=== PATIENT | female | born 1975 | race African-American/Black ===

== ENCOUNTER 2017-03-25 12:24 | Emergency (ER) | payer OTHER ==
[~2017-03-25] VITALS: Ht 167.6 cm; Wt 105.0 kg
[2017-03-25 12:26] VITALS: BP 141/86; PULSE 74; RESP 16; TEMP 98.2; O2SAT 96
--- NOTE | 2017-03-25 12:37 | PD ---
HPI Chief Complaint: Dizziness Time Seen by Provider: 12:37 Travel History International Travel<30 days: No Contact w/Intl Traveler<30days: No Traveled to known affect area: No History of Present Illness HPI 41-year-old Lyn female presents the emergency department with 2 day history of frequent diarrhea. Patient states she has a lot of fruit which started the problem. Patient states he feels lightheaded and dizzy, as well as nauseous. Patient denies vomiting or urinary symptoms. She has no fever, chills, or other symptoms. She denies any significant abdominal pain. She denies vaginal symptoms. She has no known drug allergies. PFSH Past Medical History Diminished Hearing: No ?: Not : 3 Para: 2 Miscarriage: 1 Past Surgical History Abdominal Surgery: Yes (HERNIA REPAIR) Section: Yes Social History Alcohol Use: Yes (STOPPED DAILY ALCOHOL 01/05) Tobacco Use: No Substance Use: No Allergies-Medications (Allergen,Severity, Reaction): Coded Allergies: No Known Allergies (Verified , 03/25/17) Reported Meds & Prescriptions Reported Meds & Active Scripts Active Zofran (Ondansetron HCl) 4 Mg Tab 4 Mg PO Q6HR PRN Cephalexin 500 Mg Cap 500 Mg PO Q8H Review of Systems Except as stated in HPI: all other systems reviewed are Neg General / Constitutional: No: Fever, Chills Eyes: No: Visual changes HENT: Positive: Lightheadedness, No: Headaches, Sore Throat, Rhinitis, Rhinorrhea, Congestion, Nosebleed, Neck Stiffness, Neck Pain, Ear Discharge, Earache Cardiovascular: No: Chest Pain or Discomfort Respiratory: No: Shortness of Breath Gastrointestinal: Positive: Nausea, Diarrhea, Loss of Appetite, No: Vomiting, Abdominal Pain Genitourinary: No: Urgency, Frequency, Dysuria, Pelvic Pain, Flank Pain, Discharge, Vaginal Bleeding Musculoskeletal: No: Pain Skin: No Rash Neurologic: No: Weakness Psychiatric: No: Depression Endocrine: No: Polydipsia Hematologic/Lymphatic: No: Easy Bruising Physical Exam Narrative GENERAL: Patient appears in mild distress. SKIN: Warm and dry. Color. Normal turgor. No rash. HEAD: Atraumatic. Normocephalic. EYES: Pupils equal and round. No scleral icterus. No injection or drainage. ENT: No nasal bleeding or discharge. Mucous membranes pink and moist. TMs clear bilaterally. Pharynx is normal. Airway is patent. NECK: Trachea midline. Supple and nontender. CARDIOVASCULAR: Regular rate and rhythm. RESPIRATORY: No accessory muscle use. Clear to auscultation. Breath sounds equal bilaterally. GASTROINTESTINAL: Abdomen soft, mild diffuse tenderness, nondistended. Hepatic and splenic margins not palpable. No CVA tenderness. MUSCULOSKELETAL: Extremities without clubbing, cyanosis, or edema. No obvious deformities. NEUROLOGICAL: Awake and alert. No obvious cranial nerve deficits. Motor grossly within normal limits. Five out of 5 muscle strength in the arms and legs. Normal speech. PSYCHIATRIC: Appropriate mood and affect; insight and judgment normal. Data Data Last Documented VS Vital Signs Date Time Temp Pulse Resp B/P Pulse Ox O2 Delivery O2 Flow Rate FiO2 03/25/17 13:21 63 15 153/95 03/25/17 12:26 98.2 96 Orders Complete Blood Count With Diff (03/25/17 12:46) Comprehensive Metabolic Panel (03/25/17 12:46) Lipase (03/25/17 12:46) Lactic Acid (03/25/17 12:46) Urinalysis - C+S If Indicated (03/25/17 12:46) Iv Access Insert/Monitor (03/25/17 12:46) Ecg Monitoring (03/25/17 12:46) Oximetry (03/25/17 12:46) Ondansetron Inj (Zofran Inj) (03/25/17 13:00) Sodium Chlor 0.9% 1000 Ml Inj (Ns 1000 M (03/25/17 12:46) Sodium Chloride 0.9% Flush (Ns Flush) (03/25/17 13:00) Ed Urine Pregnancytest Poc (03/25/17 12:46) Orthostatic Vital Signs (03/25/17 13:00) Urine Culture (03/25/17 13:05) Ceftriaxone Inj (Rocephin Inj) (03/25/17 14:00) Labs Laboratory Tests Test 03/25/17 03/25/17 03/25/17 13:02 13:03 13:05 White Blood Count 4.0 TH/MM3 Red Blood Count 4.73 MIL/MM3 Hemoglobin 13.1 GM/DL Hematocrit 40.2 % Mean Corpuscular Volume 85.1 FL Mean Corpuscular Hemoglobin 27.8 PG Mean Corpuscular Hemoglobin 32.7 % Concent Red Cell Distribution Width 14.4 % Platelet Count 248 TH/MM3 Mean Platelet Volume 8.7 FL Neutrophils (%) (Auto) 53.6 % Lymphocytes (%) (Auto) 30.3 % Monocytes (%) (Auto) 12.6 % Eosinophils (%) (Auto) 3.2 % Basophils (%) (Auto) 0.3 % Neutrophils # (Auto) 2.1 TH/MM3 Lymphocytes # (Auto) 1.2 TH/MM3 Monocytes # (Auto) 0.5 TH/MM3 Eosinophils # (Auto) 0.1 TH/MM3 Basophils # (Auto) 0.0 TH/MM3 CBC Comment DIFF FINAL Differential Comment Sodium Level 140 MEQ/L Potassium Level 4.2 MEQ/L Chloride Level 107 MEQ/L Carbon Dioxide Level 29.5 MEQ/L Anion Gap 4 MEQ/L Blood Urea Nitrogen 8 MG/DL Creatinine 0.84 MG/DL Estimat Glomerular Filtration 91 ML/MIN Rate Random Glucose 104 MG/DL Calcium Level 8.4 MG/DL Total Bilirubin 0.2 MG/DL Aspartate Amino Transf 27 U/L (AST/SGOT) Alanine Aminotransferase 35 U/L (ALT/SGPT) Alkaline Phosphatase 62 U/L Total Protein 7.3 GM/DL Albumin 3.1 GM/DL Lipase 127 U/L Lactic Acid Level 1.5 mmol/L Urine Color YELLOW Urine Turbidity HAZY Urine pH 6.5 Urine Specific [place] 1.013 Urine Protein NEG mg/dL Urine Glucose (UA) NEG mg/dL Urine Ketones NEG mg/dL Urine Occult Blood NEG Urine Nitrite NEG Urine Bilirubin NEG Urine Urobilinogen LESS THAN 2.0 MG/DL Urine Leukocyte Esterase LARGE Urine RBC 1 /hpf Urine WBC 6 /hpf Urine Squamous Epithelial 3 /hpf Cells Urine Bacteria MOD /hpf Urine Mucus FEW /lpf Microscopic Urinalysis Comment CULTURE INDICATED MDM Medical Decision Making Medical Screen Exam Complete: Yes Emergency Medical Condition: Yes Differential Diagnosis Diarrhea. Electrolyte imbalance. Dehydration. Colitis. Narrative Course Patient appears medically stable. Labs are ordered including CBC, CMP, lipase, urinalysis, urine . IV access is obtained patient is given thousand and also normal saline bolus. Patient is also given 4 mg Zofran IV. CBC, CMP, lipase are normal. Urinalysis shows probable UTI. Patient is given Rocephin 1000 mg I V. Will be treated outpatient with Keflex 500 mg 3 times a day 7 days. Patient also given Zofran 4 mg every 6 hours when necessary nausea. #12. Patient is to rest push fluids use Imodium as needed for diarrhea. Follow-up primary care physician next week or return to ED if worsening symptoms develop. Work note is given for today. Diagnosis Primary Impression: Urinary tract infection Qualified Code: N30.00 - Acute cystitis without hematuria Additional Impressions: Diarrhea Qualified Code: A09 - Diarrhea of presumed infectious origin Dehydration symptoms Referrals: [facility] Primary Care Physician Patient Instructions: Acute Diarrhea (ED), Dehydration (ED), Dysuria (ED), General Instructions Departure Forms: Work Release Enter return to work date: Mar 27, 2017 Additional Instructions: CBC, CMP, lipase are normal. Urinalysis shows probable UTI. Patient is given Rocephin 1000 mg I V. Will be treated outpatient with Keflex 500 mg 3 times a day 7 days. Patient also given Zofran 4 mg every 6 hours when necessary nausea. #12. Patient is to rest push fluids use Imodium as needed for diarrhea. Follow-up primary care physician next week or return to ED if worsening symptoms develop. Work note is given for today. Med/Other Pt SpecificInfo: Prescription(s) given Scripts Ondansetron (Zofran)4 Mg Tab4 Mg PO Q6HR PRN (NAUSEA OR VOMITING) #12 TAB Prov:Mila Norris MD 03/25/17 Cephalexin 500 Mg Sgp216 Mg PO Q8H #21 CAP Prov:Mila Norris MD 03/25/17 Disposition: 01 DISCHARGE HOME Condition: Stable Shanye De Leon Mar 25, 2017 12:37
[2017-03-25] MEDS ORDERED: SODIUM CHLOR 0.9% 1000 ML INJ 1,000 ML IV SCH (12:46)
[2017-03-25] MEDS ORDERED: ONDANSETRON HCL 4 MG/2 ML VIAL IVP ONE (13:00)
[2017-03-25] MEDS ORDERED: SODIUM CHLORIDE 0.9% FLUSH 10 ML FLUSH IV FLUSH PRN (13:00)
[2017-03-25 13:16] LABS: AUTOMATED NEUTROPHIL # 2.1 TH/MM3 (1.8-7.7); BASOPHIL % 0.3 % (0.0-2.0); EOSINOPHIL # 0.1 TH/MM3 (0-0.4); EOSINOPHIL % 3.2 % (0.0-4.0); HEMATOCRIT 40.2 % (35.0-46.0); HEMO FLAGS DIFF FINAL; LYMPH % 30.3 % (9.0-44.0); LYMPHOCYTE # 1.2 TH/MM3 (1.0-4.8); MEAN CELL VOLUME 85.1 FL (80.0-100.0); MEAN CORPUSCULAR HEMOGLOBIN 27.8 PG (27.0-34.0); MEAN CORPUSCULAR HGB CONC 32.7 % (32.0-36.0); MONO % 12.6 % (0.0-8.0); NEUT % 53.6 % (16.0-70.0); PLATELET COUNT 248 TH/MM3 (150-450); RED BLOOD COUNT 4.73 MIL/MM3 (4.00-5.30); RED CELL DISTRIBUTION WIDTH 14.4 % (11.6-17.2)
[2017-03-25 13:20] VITALS: BP 131/72; RESP 18
[2017-03-25 13:21] VITALS: BP 153/95; RESP 15
[2017-03-25 13:25] LABS: BACTERIA, URINE MOD /hpf; BLOOD, URINE NEG (NEG); COMMENT (UR) CULTURE INDICATED; CULTURE IF INDICATED CULTURE INDICATED; GLUCOSE,URINE NEG (NEG); KETONE, URINE NEG (NEG); MUCUS URINE FEW /lpf (OCC); NITRITE,URINE NEG (NEG); PH, URINE 6.5 (5.0-8.5); SQUAMOUS EPITHELIAL CELL URINE 3 /hpf (0-5); URINE COLOR YELLOW (YELLW/STRAW)
[2017-03-25 13:38] LABS: ALT (GPT) 35 U/L (10-53); ANION GAP 4 MEQ/L (5-15); AST (GOT) 27 U/L (15-37); BICARBONATE 29.5 MEQ/L (21.0-32.0); BLOOD UREA NITROGEN 8 MG/DL (7-18); CHLORIDE 107 MEQ/L (98-107); GLOMERULAR FILTRATION RATE 91 ML/MIN (>89); POTASSIUM 4.2 MEQ/L (3.5-5.1); SODIUM (NA) 140 MEQ/L (136-145)
[2017-03-25 13:41] LABS: ALKALINE PHOSPHATASE 62 U/L (45-117); TOTAL BILIRUBIN ADULT 0.2 MG/DL (0.2-1.0)
[2017-03-25] MEDS ORDERED: ZOFR4TAB PO (13:53)
[2017-03-25] MEDS ORDERED: CEPH500C PO (13:53)
[2017-03-25] MEDS ORDERED: cefTRIAXone INJ 1,000 MG in SODIUM CHLORIDE 0.9% INJ 50 ML IV ONE (14:00)
[2017-03-25 14:56] VITALS: BP 132/85
== END 2017-03-25 14:56 | disposition home or self-care (01) ==
LOC: NEPD 12:24
DX: N39.0 Urinary tract infection, site not specified (principal); R19.7 Diarrhea, unspecified; E86.0 Dehydration; R42 Dizziness and giddiness; Z79.899 Other long term (current) drug therapy
CPT/HCPCS: 80053; 81001; 83605; 83690; 84703; 85025; 87086; 96361; 96365; 96375; 99284; J0696; J2405; J7030